=== PATIENT | female | born 1980 | race Caucasian/White ===

== ENCOUNTER 2018-06-16 20:18 | Emergency (ER) | payer BC, OTHER, SELFPAY ==
[2018-06-16 21:36] LABS: Absolute Lymphocytes (CBC) 2.9 K/uL (0.7-4.9); Absolute Monocytes 0.5 K/uL (0.1-1.3); Absolute Neutrophil 6.4 K/uL (1.8-8.0); Basophils % 0.3 % (0-1.3); Eosinophils % 1.8 % (0-4.4); Hematocrit 42.7 % (36.0-45.0); Lymphocytes % 28.8 % (15.3-44.8); MCH 31.4 pg (27.0-35.0); MCV 92.7 fL (80-100); MPV 8.5 fL (7.6-11.3); Monocytes % 5.3 % (3.3-12.3); RBC Red Blood Cell Count 4.61 M/uL (3.86-4.86)
--- NOTE | 2018-06-16 21:38 | RAD REPORT ---
EXAM DESCRIPTION: Chayo Single View06/16/2018 8:56 pm CLINICAL HISTORY: Chest pain COMPARISON: none FINDINGS: The lungs appear clear of acute infiltrate. The heart is normal size IMPRESSION: No acute abnormalities displayed
[2018-06-16 21:39] LABS: ALT/SGPT 36 U/L (12-78); AST/SGOT 22 U/L (15-37); Albumin 4.4 g/dL (3.4-5.0); Alkaline Phosphatase 82 U/L (45-117); BUN Blood Urea Nitrogen 12 mg/dL (7-18); Bicarbonate 23 mmol/L (21-32); Bilirubin Direct 0.2 mg/dL (0-0.2); Bilirubin Total 0.8 mg/dL (0.2-1.0); Glucose Level 82 mg/dL (74-106); Magnesium 2.2 mg/dL (1.8-2.4); NT PRO-BNP 13 pg/mL (<125); Potassium 3.6 mmol/L (3.5-5.1); Protein, Total 8.3 g/dL (6.4-8.2); Sodium Level 138 mmol/L (136-145); Troponin (Emerg Dept Use Only) < 0.02 ng/mL (0.0-0.045)
[2018-06-16 22:14] LABS: Protime INR 0.98
--- NOTE | 2018-06-16 23:43 | ER ---
Nurse's Notes [facility] Name: Danna Chen Age: 38 yrs Sex: Female : 1980 Arrival Date: 06/16/2018 Time: 20:19 Bed 14 Private MD: Diagnosis: Dizziness and giddiness;Palpitations Presentation: 06/16 20:27 Presenting complaint: Patient states: Chest pain, palpitations, and dizziness since aj1 last week. Last night the pain started radiating to her left shoulder and neck. She went to the clinic at around 6:00 pm today and they told her that her blood pressure was high and she needed to come to the emergency room for evaluation. Transition of care: patient was not received from another setting of care. Onset of symptoms was June 09, 2018. Risk Assessment: Do you want to hurt yourself or someone else? Patient reports no desire to harm self or others. Initial Sepsis Screen: Does the patient meet any 2 criteria? No. Patient's initial sepsis screen is negative. Does the patient have a suspected source of infection? No. Patient's initial sepsis screen is negative. Care prior to arrival: None. 20:27 Method Of Arrival: Ambulatory aj1 20:27 Acuity: RAMAN 3 aj1 Triage Assessment: 20:31 General: Appears in no apparent distress. comfortable, Behavior is calm, cooperative, aj1 appropriate for age. Pain: Complains of pain in anterior aspect of left upper chest, mid-sternal area, anterior aspect of left shoulder, posterior aspect of left shoulder and neck Pain currently is 5 out of 10 on a pain scale. Neuro: Level of Consciousness is awake, alert, obeys commands. Cardiovascular: Reports chest pain, palpitations, Patient's skin is warm and dry. Respiratory: Airway is patent Respiratory effort is even, unlabored, Respiratory pattern is regular, symmetrical. 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 - Social history:: Smoking status: Patient/guardian denies using tobacco. - Ebola Screening: : Patient denies travel to an Ebola-affected area in the 21 days before illness onset. Screenin:54 Abuse screen: Denies threats or abuse. Denies injuries from another. Nutritional lp1 screening: No deficits noted. Tuberculosis screening: No symptoms or risk factors identified. Fall Risk None identified. Assessment: 20:53 General: Appears in no apparent distress. Behavior is appropriate for age. Pain: lp1 Complains of pain in chest Pain does not radiate. Pain began 1 week ago Is intermittent, Also complains of shortness of breath. Neuro: Level of Consciousness is awake, alert, obeys commands, Oriented to person, place, time, situation. Cardiovascular: Patient's skin is warm and dry. Rhythm is sinus rhythm. Respiratory: Respiratory effort is even, unlabored, Respiratory pattern is regular, symmetrical, Breath sounds are clear bilaterally. Denies shortness of breath. GI: Abdomen is flat. : No signs and/or symptoms were reported regarding the genitourinary system. EENT: No signs and/or symptoms were reported regarding the EENT system. Derm: Skin is pink, warm \T\ dry. Musculoskeletal: Circulation, motion, and sensation intact. 21:59 Reassessment: Patient appears in no apparent distress at this time. No changes from lp1 previously documented assessment. Patient and/or family updated on plan of care and expected duration. Pain level reassessed. Patient is alert, oriented x 3, equal unlabored respirations, skin warm/dry/pink. 23:00 Reassessment: Patient appears in no apparent distress at this time. Patient and/or lp1 family updated on plan of care and expected duration. Pain level reassessed. Patient is alert, oriented x 3, equal unlabored respirations, skin warm/dry/pink. Patient denies pain at this time. 06/17 00:13 Reassessment: IV fluids infusing, patient aware of discharge on completion of IV bolus. lp1 00:33 Reassessment: Patient is alert, oriented x 3, equal unlabored respirations, skin lp1 warm/dry/pink. Patient states feeling better. Vital Signs: 06/16 20:31 BP 150 / 93; Pulse 71; Resp 18; Temp 97.8; Pulse Ox 100% on R/A; Height 5 ft. 5 in. aj1 (165.10 cm) (R); Pain 5/10; 21:45 BP 123 / 92; Pulse 75; Resp 13; Pulse Ox 98% on R/A; lp1 22:45 BP 110 / 82; Pulse 80; Resp 15; Pulse Ox 99% ; lp1 23:30 BP 112 / 74; Pulse 75; Resp 14; Pulse Ox 99% on R/A; lp1 06/17 00:15 BP 114 / 77; Pulse 66; Resp 15; Pulse Ox 100% on R/A; Pain 0/10; lp1 ED Course: 06/16 20:19 Patient arrived in ED. al2 20:31 Triage completed. aj1 20:31 Arm band placed on Patient placed in an exam room. aj1 20:41 Calli Hutchinson, RN is Primary Nurse. lp1 20:46 Marion Bull FNP-C is [facility]. snw 20:46 Kem Felton MD is Attending Physician. snw 20:52 EKG done, by ED staff, reviewed by Marion VALLE. Patient maintains SpO2 lp1 saturation greater than 95% on room air. 20:54 Patient has correct armband on for positive identification. Placed in gown. Bed in low lp1 position. Call light in reach. candy maker helper on. Pulse ox on. NIBP on. 20:56 XRAY Chest (1 view) In Process Unspecified. EDMS 21:05 Initial lab(s) drawn, by me, sent to lab. Missed attempt(s): 20 gauge in left cb2 antecubital area. Bleeding controlled, band aid applied, catheter tip intact. 06/17 00:06 Inserted saline lock: 22 gauge in right antecubital area, using aseptic technique. lp1 00:13 No provider procedures requiring assistance completed. lp1 00:34 IV discontinued, IV infusion stopped, infiltration noted, pressure dressing applied. lp1 Administered Medications: 00:06 Drug: NS 0.9% 1000 ml Route: IV; Rate: 1 bolus; Site: right antecubital; lp1 00:33 Follow up: IV Status: Completed infusion; IV Intake: 800ml lp1 Intake: 00:33 IV: 800ml; Total: 800ml. lp1 Outcome: 06/16 23:41 Discharge ordered by . snw 06/17 00:35 Discharged to home ambulatory. lp1 Condition: good Discharge instructions given to patient, Instructed on discharge instructions, follow up and referral plans. medication usage, Demonstrated understanding of instructions, follow-up care, medications, Prescriptions given X 1. 00:36 Patient left the ED. lp1 Signatures: Dispatcher [employer] EDSangita Webber RN RN aj1 Marion Bull, MANAGER STRATEGY & ACCOUNT-C MANAGER STRATEGY & ACCOUNT-Csnw Calli Hutchinson RN RN lp1 Rhys Harris, Janine campbell2 Corrections: (The following items were deleted from the chart) 00:35 00:34 IV discontinued, No redness/swelling at site. Pressure dressing applied, lp1 lp1
--- NOTE | 2018-06-16 23:43 | EDPHYS ---
Physician Documentation [facility] Name: Danna Chen Age: 38 yrs Sex: Female : 1980 Arrival Date: 06/16/2018 Time: 20:19 Bed 14 Private MD: ED Physician Kem Felton HPI: 06/16 21:14 This 38 yrs old Female presents to ER via Ambulatory with complaints of Chest snw Pain. 21:14 The patient or guardian reports chest pain that is located primarily in the anterior snw chest wall, bilaterally. The pain radiates to the left shoulder. Associated signs and symptoms: Pertinent positives: lightheadedness, palpitations. The chest pain is described as squeezing. Duration: The patient or guardian reports multiple episodes, that wax and wane. Severity of pain: At its worst the pain was mild. The patient has not experienced similar symptoms in the past. It is unknown whether or not the patient has recently seen a physician. 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 - Social history:: Smoking status: Patient/guardian denies using tobacco. - Ebola Screening: : Patient denies travel to an Ebola-affected area in the 21 days before illness onset. ROS: 21:13 Constitutional: Negative for fever, chills, and weight loss, Eyes: Negative for injury, snw pain, redness, and discharge. 21:13 Neck: Negative for injury, pain, and swelling. 21:13 Respiratory: Negative for shortness of breath, cough, wheezing, and pleuritic chest pain, Abdomen/GI: Negative for abdominal pain, nausea, vomiting, diarrhea, and constipation, Back: Negative for injury and pain, : Negative for injury, bleeding, discharge, and swelling, MS/Extremity: Negative for injury and deformity, Skin: Negative for injury, rash, and discoloration. 21:13 ENT: Positive for tinnitus. 21:13 Cardiovascular: Positive for palpitations. 21:13 Neuro: Positive for light headedness. Exam: 21:13 Constitutional: This is a well developed, well nourished patient who is awake, alert, snw and in no acute distress. Head/Face: Normocephalic, atraumatic. Eyes: Pupils equal round and reactive to light, extra-ocular motions intact. Lids and lashes normal. Conjunctiva and sclera are non-icteric and not injected. Cornea within normal limits. Periorbital areas with no swelling, redness, or edema. ENT: Nares patent. No nasal discharge, no septal abnormalities noted. Tympanic membranes are normal and external auditory canals are clear. Oropharynx with no redness, swelling, or masses, exudates, or evidence of obstruction, uvula midline. Mucous membranes moist. Neck: Trachea midline, no thyromegaly or masses palpated, and no cervical lymphadenopathy. Supple, full range of motion without nuchal rigidity, or vertebral point tenderness. No Meningismus. Chest/axilla: Normal chest wall appearance and motion. Nontender with no deformity. No lesions are appreciated. Cardiovascular: Regular rate and rhythm with a normal S1 and S2. No gallops, murmurs, or rubs. Normal PMI, no JVD. No pulse deficits. Respiratory: Lungs have equal breath sounds bilaterally, clear to auscultation and percussion. No rales, rhonchi or wheezes noted. No increased work of breathing, no retractions or nasal flaring. Abdomen/GI: Soft, non-tender, with normal bowel sounds. No distension or tympany. No guarding or rebound. No evidence of tenderness throughout. Back: No spinal tenderness. No costovertebral tenderness. Full range of motion. Skin: Warm, dry with normal turgor. Normal color with no rashes, no lesions, and no evidence of cellulitis. MS/ Extremity: Pulses equal, no cyanosis. Neurovascular intact. Full, normal range of motion. Neuro: Awake and alert, GCS 15, oriented to person, place, time, and situation. Cranial nerves II-XII grossly intact. Motor strength 5/5 in all extremities. Sensory grossly intact. Cerebellar exam normal. Normal gait. Psych: Awake, alert, with orientation to person, place and time. Behavior, mood, and affect are within normal limits. Vital Signs: 20:31 BP 150 / 93; Pulse 71; Resp 18; Temp 97.8; Pulse Ox 100% on R/A; Height 5 ft. 5 in. aj1 (165.10 cm) (R); Pain 5/10; 21:45 BP 123 / 92; Pulse 75; Resp 13; Pulse Ox 98% on R/A; lp1 22:45 BP 110 / 82; Pulse 80; Resp 15; Pulse Ox 99% ; lp1 23:30 BP 112 / 74; Pulse 75; Resp 14; Pulse Ox 99% on R/A; lp1 11 00:15 BP 114 / 77; Pulse 66; Resp 15; Pulse Ox 100% on R/A; Pain 0/10; lp1 MDM: 11 20:47 Patient medically screened. snw 23:43 ECG:. Data reviewed: vital signs, nurses notes. Data interpreted: Pulse oximetry: on snw room air is 99 %. Interpretation: normal. Counseling: I had a detailed discussion with the patient and/or guardian regarding: the historical points, exam findings, and any diagnostic results supporting the discharge/admit diagnosis, the presence of at least one elevated blood pressure reading (>120/80) during this emergency department visit, the need for outpatient follow up, for definitive care, to return to the emergency department if symptoms worsen or persist or if there are any questions or concerns that arise at home. 06/16 20:47 Order name: Basic Metabolic Panel; Complete Time: 22:08 snw 06/16 20:47 Order name: CBC with Diff; Complete Time: 21:40 snw 06/16 20:47 Order name: LFT's; Complete Time: 22:08 snw 06/16 20:47 Order name: Magnesium; Complete Time: 22:08 snw 06/16 20:47 Order name: NT PRO-BNP; Complete Time: 22:08 snw 06/16 20:47 Order name: PT-INR; Complete Time: 22:15 snw 06/16 20:47 Order name: Troponin (emerg Dept Use Only); Complete Time: 22:08 snw 06/16 20:47 Order name: XRAY Chest (1 view); Complete Time: 21:39 snw 06/16 20:47 Order name: EKG; Complete Time: 20:48 snw 06/16 20:47 Order name: DD; Complete Time: 22:15 snw 06/16 21:13 Order name: Add On-Lab snw 06/16 21:13 Order name: Thyroid Stimulating Hormone; Complete Time: 22:08 EDCT 06/16 21:45 Order name: T4 Free; Complete Time: 22:08 EDCT 06/16 20:47 Order name: Cardiac monitoring; Complete Time: 20:52 snw 06/16 20:47 Order name: EKG - Nurse/Tech; Complete Time: 20:52 snw 06/16 20:47 Order name: IV Saline Lock; Complete Time: 00:07 snw 06/16 20:47 Order name: Labs collected and sent; Complete Time: 21:05 snw 06/16 20:47 Order name: O2 Per Protocol; Complete Time: 20:52 snw 06/16 20:47 Order name: O2 Sat Monitoring; Complete Time: 20:52 snw Administered Medications: 06/17 00:06 Drug: NS 0.9% 1000 ml Route: IV; Rate: 1 bolus; Site: right antecubital; lp1 00:33 Follow up: IV Status: Completed infusion; IV Intake: 800ml lp1 Disposition: 05:14 Co-signature as Attending Physician, Kem Felton MD. rn Disposition: 06/16/18 23:41 Discharged to Home. Impression: Dizziness and giddiness, Palpitations. - Condition is Stable. - Discharge Instructions: Nonspecific Chest Pain, Dizziness, Holter Monitoring, Palpitations, Vertigo, Edna Maneuver Self-Care, Rehydration, Adult. - Prescriptions for Antivert 25 mg Oral Tablet - take 1 tablet by ORAL route every 8 hours As needed; 20 tablet. - Work release form, Medication Reconciliation Form, Thank You Letter, Antibiotic Education, Prescription Opioid Use form. - Follow up: Private Physician; When: 2 - 3 days; Reason: Recheck today's complaints, Continuance of care, Re-evaluation by your physician. Follow up: Emergency Department; When: As needed; Reason: Worsening of condition. Signatures: Dispatcher [employer] [facility] Sangita Jorge RN RN aj1 Marion Bull FNP-C NURSES SUPERVISOR-Csnw Kem Felton MD MD rn Pena, Laura, RN RN lp1 Corrections: (The following items were deleted from the chart) 00:36 06/16 23:41 06/16/2018 23:41 Discharged to Home. Impression: Dizziness and giddiness; lp1 Palpitations. Condition is Stable. Forms are Medication Reconciliation Form, Thank You Letter, Antibiotic Education, Prescription Opioid Use. Follow up: Private Physician; When: 2 - 3 days; Reason: Recheck today's complaints, Continuance of care, Re-evaluation by your physician. Follow up: Emergency Department; When: As needed; Reason: Worsening of condition. snw
[2018-06-17] MEDS ORDERED: NA CHLORIDE 0.9% 1,000 ML ONE (00:03)
--- NOTE | 2018-06-17 07:14 | EKG ---
Test Date: 2018-06-16 Test Time: 20:47:12 Metal Numerical Control Programmer: VISHAL MEASUREMENT RESULTS: Intervals: Rate: 78 TX: 128 QRSD: 90 QT: 396 QTc: 451 [place]: P: 61 TX: 128 QRS: 72 T: 40 INTERPRETIVE STATEMENTS: Normal sinus rhythm Normal ECG No previous ECG available for comparison Electronically Signed On 06-17-18 07:13:20 RETIREMENT PLAN COUNSELOR by Ricky Cabrales
== END 2018-06-17 00:36 | disposition home or self-care (01) ==
LOC: ER 20:18
DX: R00.2 Palpitations (principal); R42 Dizziness and giddiness
CPT/HCPCS: 36415; 71045; 80048; 80076; 83735; 83880; 84439; 84443; 84484; 85025; 85379; 85610; 93005; 99285; J7030